=== PATIENT | female | born 1990 | race Caucasian/White ===

== ENCOUNTER 2020-12-24 13:46 | Emergency (ER) | payer OTHER ==
[2020-12-24 14:18] VITALS: BP 119/79; PULSE 71; TEMP 98.3; BMI 22.2
== END 2020-12-24 16:01 | disposition home or self-care (01) ==
LOC: JERFT 13:46
DX: B35.1 Tinea unguium (principal)
CPT/HCPCS: 73660-TC-FY; 73660-TC-LT-FY; 99284-25

== ENCOUNTER 2021-01-04 14:20 | Emergency (ER) | payer OTHER ==
[2021-01-04 14:31] VITALS: BP 95/66; PULSE 89; TEMP 98; BMI 22.2
== END 2021-01-04 15:05 | disposition home or self-care (01) ==
LOC: JERFT 14:20
DX: L60.0 Ingrowing nail (principal)
CPT/HCPCS: 99281-25

== ENCOUNTER 2023-11-29 13:48 | Emergency (ER) | payer OTHER ==
[2023-11-29 13:54] VITALS: BP 115/83; PULSE 76; RESP 20; TEMP 98.6; BMI 23.7
[2023-11-29] MEDS: SODIUM CHLORIDE 0.9% 500 ML INFUS.BAG IV ONE (14:47)
[2023-11-29] MEDS ORDERED: ACETAMINOPHEN INJECTION 100 ML ONE (14:47)
[2023-11-29] MEDS ORDERED: METOCLOPRAMIDE HCL INJECTION 10 MG/2 ML VIAL ONE (14:48)
[2023-11-29 14:55] LABS: BASO % 0.7 % (0-2.0); EOS % 1.3 % (0-4.5); HEMOGLOBIN 13.7 GM/dL (10.7-15.3); LYMPH % 30.7 % (8-40); MCH 29.8 pg (25.7-33.7); MCHC 33.5 g/dl (32.0-36.0); MEAN PLT VOLUME 8.8 fl (7.5-11.1); MONO % 8.9 % (3.8-10.2); NEUT % 58.4 % (42.8-82.8); PLATELET COUNT 301 10^3/uL (134-434); RDW 13.1 % (11.6-15.6)
[2023-11-29] MEDS: ACETAMINOPHEN 1000 MG/100 ML BAG IVPB ONE ×2 (14:57→14:58)
[2023-11-29] MEDS: METOCLOPRAMIDE HCL INJECTION 10 MG/2 ML VIAL IVPB ONE (14:57)
[2023-11-29] MEDS: MECLIZINE HCL 25 MG TABLET (FP) PO ONE (14:58)
[2023-11-29] MEDS ORDERED: MECLIZINE HCL 25 MG TABLET (FP) ONE (14:58)
[2023-11-29 15:42] LABS: POTASSIUM 3.9 mmol/L (3.5-5.1)
[2023-11-29 15:44] LABS: CALCIUM 9.5 mg/dL (8.5-10.1)
[2023-11-29 15:45] LABS: ALBUMIN 4.4 g/dl (3.4-5.0); BLOOD UREA NITROGEN 8.4 mg/dL (7-18); MAGNESIUM 1.8 mg/dL (1.8-2.4)
[2023-11-29 15:48] LABS: CREATININE 0.7 mg/dL (0.55-1.3)
[2023-11-29 15:50] LABS: BILIRUBIN,TOTAL 0.5 mg/dL (0.2-1); TOT PROT 8.4 g/dl (6.4-8.2)
== END 2023-11-29 16:08 | disposition home or self-care (01) ==
LOC: JER 13:48
PROC: 3E033NZ Introduction of Analgesics, Hypnotics, Sedatives into Peripheral Vein, Percutaneous Approach (ICD-10-PCS; principal; 2023-11-29)
PROC: 3E033GC Introduction of Other Therapeutic Substance into Peripheral Vein, Percutaneous Approach (ICD-10-PCS; 2023-11-29)
DX: R42 Dizziness and giddiness (principal)
CPT/HCPCS: 36415; 80053; 83735; 84439; 84443; 84484; 84703; 85025; 93005; 93010; 99285-25; J0131